=== PATIENT | male | born 1995 | race Caucasian/White ===

== ENCOUNTER 2019-09-18 06:22 | Day surgery (SDC) | payer OTHER ==
[~2019-09-18] VITALS: Ht 177.8 cm; Wt 66.5 kg
[~2019-09-18 06:22] MED LIST: MULT-658 PO
[2019-09-18 07:06] VITALS: BP 108/76
[2019-09-18] MEDS ORDERED: LACTATED RINGERS 1,000 ML IV SCH (07:08)
[2019-09-18] MEDS ORDERED: ACETAMINOPHEN 500 MG TABLET ONE (07:24)
[2019-09-18] MEDS ORDERED: GABAPENTIN 300 MG CAPSULE ONE (07:24)
[2019-09-18] MEDS ORDERED: ACETAMINOPHEN 500 MG TABLET PO ONE (07:30)
[2019-09-18] MEDS ORDERED: GABAPENTIN 300 MG CAPSULE PO ONE (07:30)
[2019-09-18] MEDS ORDERED: NEOSPORIN OINT, 15GM ONE (07:59)
[2019-09-18] MEDS ORDERED: OXYMETAZOLINE NASAL SPRAY 0.05%, 15ML ONE (07:59)
[2019-09-18] MEDS ORDERED: LIDOCAINE 1%-EPI 1:100K, 20ML ONE (07:59)
[2019-09-18] MEDS ORDERED: FENTANYL PF 250 MCG/5ML ONE (08:14)
[2019-09-18] MEDS ORDERED: MEPERIDINE/PF 25MG/ML,1ML IVPush PRN (08:30)
[2019-09-18] MEDS ORDERED: HYDROmorphone 2 MG/ML, 1ML IVPush PRN (08:30)
[2019-09-18] MEDS ORDERED: hydrALAzine 20 MG/ML, 1ML IV PRN (08:30)
[2019-09-18] MEDS ORDERED: OXYcodone 5 MG/5 ML ORAL.SOL UDC PO PRN (08:30)
[2019-09-18] MEDS ORDERED: HALOPERIDOL 5 MG/ML IV PRN (08:30)
[2019-09-18] MEDS ORDERED: FENTANYL PF 100 MCG/2ML IV PRN (08:30)
[2019-09-18] MEDS ORDERED: LABETALOL 5MG/ML, 20ML IV PRN (08:30)
[2019-09-18] MEDS ORDERED: PROMETHAZINE 25 MG/ML, 1ML IV PRN (08:30)
[2019-09-18] MEDS ORDERED: GLYCOPYRROLATE 0.2MG/1ML, 5ML ONE (08:59)
[2019-09-18] MEDS ORDERED: ROCURONIUM 10MG/ML,5ML ONE (08:59)
[2019-09-18] MEDS ORDERED: CEFAZOLIN 1,000 MG ONE (08:59)
[2019-09-18] MEDS ORDERED: NEOSTIGMINE 1 MG/ML, 10ML ONE (08:59)
[2019-09-18] MEDS ORDERED: ONDANSETRON 2MG/ML, 2ML ONE (08:59)
[2019-09-18] MEDS ORDERED: SUCCINYLCHOLINE 20 MG/ML, 10ML ONE (08:59)
[2019-09-18] MEDS ORDERED: DEXAMETHASONE 4 MG/ML, 1ML ONE (08:59)
[2019-09-18] MEDS ORDERED: PROPOFOL 10 MG/ML, 20ML ONE (08:59)
== END 2019-09-18 11:35 | disposition home or self-care (01) ==
LOC: OUT 06:22
PROVIDERS: ATTEND Otolaryngology
DX: J34.2 Deviated nasal septum (principal); J34.3 Hypertrophy of nasal turbinates; F19.90 Other psychoactive substance use, unspecified, uncomplicated; F17.200 Nicotine dependence, unspecified, uncomplicated; Z91.018 Allergy to other foods; Z72.89 Other problems related to lifestyle
CPT/HCPCS: 30140; 30520; J0330; J0690; J1100; J2405; J2704; J2710; J3010; J3490; J7120